=== PATIENT | female | born 1985 | race Caucasian/White ===

== ENCOUNTER 2019-05-30 19:55 | Emergency (ER) | payer SELFPAY ==
[2019-05-30 20:02] VITALS: BP 107/74; PULSE 88; RESP 16; TEMP 37.1; O2SAT 96; BMI 23.8
--- NOTE | 2019-05-30 20:04 | ECG_ITS ---
Measurements Intervals [place] Rate: 83 P: 52 KS: 125 QRS: 22 QRSD: 88 T: 36 QT: 380 QTc: 447 SINUS RHYTHM POSSIBLE RIGHT VENTRICULAR CONDUCTION DELAY [RSR (QR) IN V1/V2] Compared to ECG 01/05/2019 06:52:17 No significant changes Electronically Signed On 05-31-2019 16:17:13 PATTERNATOR by Klaus Isbell M.D. [email or web address]
--- NOTE | 2019-05-30 20:04 | XR_ITS ---
WS: [id number] CHEST 2 VIEWS HISTORY: Acute onset of chest pain. COMPARISON: 09/23/2007 Lungs: Interstitial thickening in the lower lung du. On the lateral projection there is a more fo amparo opacification at the costophrenic angles. Believe this is probably in the LEFT costophrenic angle . Additional long-term stability of a RIGHT lower lobe calcification. Cardiac size: Normal. Mediastinum/Aorta: Normal mediastinum. Bones: Incompletely visualized fusion hardware LEFT humerus. XR/XR chest 2V* [id number] IMPRESSION: 1. Subsegmental pneumonia costophrenic angle LEFT lower lobe. 2. Otherwise stable.
--- NOTE | 2019-05-30 20:24 | ED_ITS ---
Entered by Karolina Shelton, acting as scribe for Iona Castellanos MD HPI - Chest Pain General: Chief Complaint: Chest Pain Stated Complaint: CP Time Seen by Provider: 05/30/19 20:23 Source: patient Mode of arrival: ambulatory Limitations: no limitations History of Present Illness: HPI narrative: 34 yo f came to the er pov for chest pain. Onset was today. Pt states that she was having some sharp chest pain about an hour ago. Pt states that she has some meth use 2 days ago. Pt states that she has been walking a lot the last couple of days. MD complaint: chest pain Onset (ago): hour(s) (1 hour ago) Timing of current episode: episodic Prior episodes: No Onset: during exertion Pain location: other (center) Associated symptoms: Deny abdominal pain, dyspnea, fever(s), nausea or vomiting Review of Systems Const: Denies: fever, chills, body aches or change in appetite Eyes: Denies: blurry vision or eye discomfort ENMT: Denies: throat pain or dental pain Card: Denies: chest pain Resp: Denies: shortness of breath GI: Denies: abdominal pain, nausea, vomiting or diarrhea : Denies: painful urination Musc: Denies: neck pain or back pain Skin/Breast: Denies: rash Neuro: Denies: headache Psych: Denies: depression [place]/Lymph: Denies: easy bruising All/Imm: Denies: hives PFSH ED PFSH: Statuses (acute, chronic, etc) shown below reflect problem list status as previously entered and may not be historically accurate Social History Smoking and tobacco status: current every day smoker Physical Exam Const: COMMON NORMALS: no apparent distress, oriented x3 and healthy appearing HENMT: COMMON NORMALS: normocephalic and head/scalp atraumatic HEAD & SCALP: normocephalic and atraumatic Eye: COMMON NORMALS: PERRL and EOMs intact bilaterally PUPIL: Yes PERRL Neck/C-Spine: COMMON NORMALS: full ROM and supple Chest: COMMONS NORMALS: inspection of chest normal and palpation of chest normal Resp: COMMON NORMALS: normal respiratory effort, no retractions, no use of accessory muscles and clear to auscultation bilaterally AUSCULTATION: clear to auscultation bilaterally Cardio: COMMON NORMALS: regular rate, regular rhythm and no murmurs RATE: regular rate RHYTHM: regular rhythm GI: COMMON NORMALS: normal to inspection, nondistended, normoactive bowel sounds, soft to palpation, non-tender and no masses PALPATION: Yes soft Extremity: COMMON NORMALS: normal to inspection and full ROM Neuro: COMMON NORMALS: oriented x3, moves all extremities and no focal motor deficits Psych: COMMON NORMALS: mental status grossly normal, thought process normal and cooperative THOUGHT PROCESS: normal thought process Skin: COMMON NORMALS: no rashes or lesions noted and no wounds GENERAL SKIN EXAM: no rashes or lesions noted Course Vital Signs: Vital signs: Vital Signs Temperature 98.4 F 05/30/19 20:41 Pulse Rate 88 05/30/19 21:57 Respiratory Rate 16 05/30/19 21:57 Blood Pressure 111/66 05/30/19 21:57 Pulse Oximetry 94 05/30/19 21:57 MDM - Chest Pain MDM Narrative: Medical decision making narrative: Patient presents here with chest pain that is atypical in nature. She has no signs of cardiac cause or pulmonary embolism. Her EKG and x-ray here are normal. She has been pain-free here. She is stable for discharge and is to follow-up with her primary care doctor in 3 to 5 days return to the ER if worsening. Imaging Data^: CXR: Attestation: I personally reviewed and interpreted this imaging study as follows: My impression: no acute abnormality EKG Data^: EKG 1: Attestation: I personally reviewed and interpreted this EKG as follows: EKG interpretation date: 05/30/19 EKG interpretation time: 20:47 Interpretation: nsr hr [address] or t wave abnormalities qrs 88 qtc 419 Discharge Plan Discharge Patient Disposition: Home, Self-Care Clinical Impression: Atypical chest pain Condition: Stable Discharge Orders: Discharge Order (Routine); Ordered 05/30/19 Ordered By: Iona Castellanos Discharge Diet: Advance as tolerated Discharge Activity: Resume usual activity Patient Instructions: Chest Pain (ED) Discharge Date/Time: 05/30/19 21:58 Coding Level of Care Code ED Consumer Safety Inspector for Chg Fwd Exam Problem Focused The documentation recorded by the Nikita lala Stephanie Lyn, accurately re flects the service I personally performed and the decisions made by me, Iona Castellanos MD May 30, 2019 19:55
[2019-05-30 20:41] VITALS: BP 107/6; PULSE 85; RESP 16; TEMP 36.9; O2SAT 98
--- NOTE | 2019-05-30 20:55 | PC.NURSE ---
Introduced self to patient and initiated vital signs. Pt is A&O x 4 and agreeable. Pt states that the reason for the ER visit today is due to chest pain that she was experiencing earlier but has now resolved. EMS states nitro paste applied and symptoms resolved upon arrival. Reassured patient of needs and will continue to monitor.
[2019-05-30 21:57] VITALS: BP 111/66; PULSE 88; RESP 16; O2SAT 94
== END 2019-05-30 21:58 | disposition home or self-care (01) ==
PROVIDERS: Emergency Provider Emergency Medicine
DX: R07.89 Other chest pain (principal); F17.210 Nicotine dependence, cigarettes, uncomplicated
CPT/HCPCS: 71046; 93005; 99281; 99283

== ENCOUNTER 2020-12-31 09:29 | Emergency (ER) | payer SELFPAY ==
[2020-12-31] VITALS (7 sets, daily range): BP systolic 103–110; BP diastolic 67–75; PULSE 72–88; RESP 15–16; TEMP 36.4; O2SAT 98–100; BMI 23.8
--- NOTE | 2020-12-31 09:45 | ED_ITS ---
HPI - General Adult General: Chief complaint: Wound/Laceration Stated complaint: LACERATION R FOREARM Time Seen by Provider: 12/31/20 09:30 History of Present Illness: HPI narrative: 35-year-old female presents emergency room with complaint of laceration to her right forearm. States she punched a window and cut her forearm on the glass. A bulky pressure bandage in place on arrival. She is unsure of her last tetanus accident happened just prior to arrival. Location: right and upper extremity Severity: mild Quality: sharp Pain Consistency: constant Relieving factors: immobilization and rest Exacerbating factors: movement and other (Exam) Associated symptoms: Deny chest pain, confusion, cough, diaphoresis, decreased appetite, dyspnea, fevers/chills, headache(s), malaise, nausea, rash, palpitations, seizures, short of breath, syncope, vomiting or weakness Treatments prior to arrival: none Review of Systems Const: Denies: malaise or diaphoresis ENMT: Denies: throat pain, ear or mastoid pain, nasal discharge or nasal congestion Card: Denies: chest pain, palpitations or syncope Resp: Denies: dyspnea GI: Denies: nausea or vomiting : Denies: flank pain, difficulty voiding, dysuria, urinary frequency or urinary urgency Skin/Breast: Denies: rash Neuro: Denies: headache(s) or confusion PFSH ED PFSH: Social History Smoking and tobacco status: current every day smoker Physical Exam HENMT: COMMON NORMALS: normocephalic, atraumatic and hearing grossly normal bilaterally HEAD & SCALP: normocephalic and atraumatic Neck/C-Spine: COMMON NORMALS: no JVD Resp: COMMON NORMALS: normal respiratory effort, No retractions, No use of accessory muscles and clear to auscultation bilaterally AUSCULTATION: clear to auscultation bilaterally Cardio: COMMON NORMALS: no JVD, regular rate, regular rhythm and No murmurs present (Cardio) RATE: regular rate RHYTHM: regular rhythm GI: COMMON NORMALS: Soft to palpation and No hepatosplenomegaly present AUSCULTATION: Yes normoactive bowel sounds PALPATION: Yes Soft to palpation, No Tenderness to palpation present (GI), No Guarding due to palpation present (GI) and Yes No hepatosplenomegaly present Extremity: COMMON NORMALS: normal to inspection, capillary refill normal, no clubbing, cyanosis or edema, no calf tenderness and no pedal edema NARRATIVE EXTREMITY EXAM: 12 cm full-thickness laceration of the right forearm no tendon involvement patient able to flex and extend at the fingers without difficulty. Procedures Laceration Laceration 1: Site: upper extremity (Mid forearm volar surface ) Side (If applicable): right Description: irregular Depth: involves muscle layer Local Anesthetic: lidocaine 1% and with epi Amount of anesthesia used (mL): 15 Pre-repair: wound explored and irrigated extensively Skin layer closed with: nylon Size (cm): 3-0 Technique: simple, interrupted and running Subcutaneous layer closed with: chromic gut (Single gujeii-sa-fwbve suture to tie off a vein that was actively bleeding since in the subdermal area at the distal edge of the laceration) Size: 3-0 Procedural Sedation Indication: laceration repair Preparation: program proposals coordinator applied, pulse oximeter, supplemental O2 applied and suction/airway equipment at bedside Fentanyl: IV Fentanyl dose (mcg): 50 Midazolam dose (mg): 3 Patient Tolerated Procedure: well Complications: none Additional Comments: Patient tolerated well with no complications Course Vital Signs: Vital signs: Vital Signs Temperature 97.5 F L 12/31/20 09:33 Pulse Rate 72 12/31/20 11:20 Respiratory Rate 16 12/31/20 11:19 Blood Pressure 108/70 12/31/20 11:20 Pulse Oximetry 100 12/31/20 11:20 MDM - General Adult MDM Narrative: Medical decision making narrative: Patient is able to flex and extend against resistance without any difficulty and only minimal discomfort. She has normal sensation. This was tested pre and post laceration repair. On laceration repair after conscious sedation local anesthetic was applied good anesthesia the lateral edge of the wound was irregular and went through a tattoo the skin edges were approximated with care taken to try to realign the various aspects of the tattoo as best I could. That portion of the wound had several different angles this was approximated appropriately. The subcu tissue there is some laceration to the flexor muscles superficially. Did not appear to be through and through there is some fascia involved but no apparent tendons involved on exploration of the wound. Prior to closure the wound was copiously irrigated with a 20ml syringe and 18-gauge Angiocath. A single large vein was noted to be bleeding profusely during irrigation was clamped off with a curved hemostat and then tied off with a kyehkl-fr-foklk of 4-0 chromic. There is good hemostasis with this no further active bleeding. The remaining portion of the wound was a single long laceration this was closed with a running locking suture with care taken not to apply too much tension on the sutures and strangulate the skin. There is good approximation cosmesis and hemostasis. Wound care instructions given. Sutures out in 10 days. Turn if there is any sign of infection. Patient was prophylaxed with a gram of Ancef also her tetanus was updated. Discharge Plan Discharge Patient Disposition: Home Clinical Impression: Laceration Condition: Stable Prescriptions: New cephalexin 500 mg capsule 500 mg PO BID 7 Days Qty: 14 RF: 0 Discharge Orders: Discharge ED (Routine); Ordered 12/31/20 Ordered By: Alexx Gillis Discharge Diet: Usual diet Discharge Activity: Limit activity as instructed Patient Instructions: Opioid Safety Activity Restrictions/Additional Instructions: Mild use of the right arm for the next 3 days and advance as tolerated. Apply [id number] topical antibiotic ointment and a light dressing change at least once a day. Allow several hours a day exposure to air. Return to the walk-in clinic for suture removal in 10 days. If there is any sign of infection redness or drainage return immediately to the emergency room. Coding Level of Care Code ED Senior Software Qa Analyst for Josiah Waddell Exam Detailed
[2020-12-31] MEDS: ceFAZolin 1,000 mg SDV 1000 MG IVP (10:08)
[2020-12-31] MEDS: tetanus-dipt-pertussis 0.5 mL SDV IM (10:12)
[2020-12-31] MEDS: midazolam 1 mg/mL INJ 2 mL 2.5 MG IVP (11:18)
[2020-12-31] MEDS: midazolam 1 mg/mL INJ 2 mL 2 MG IVP (11:19)
[2020-12-31] MEDS: fentaNYL 50 mcg/mL INJ 2mL IVP (11:19)
== END 2020-12-31 13:19 | disposition home or self-care (01) ==
PROVIDERS: Emergency Provider Family Medicine
DX: S51.811A Laceration without foreign body of right forearm, initial encounter (principal); W25.XXXA Contact with sharp glass, initial encounter; F17.210 Nicotine dependence, cigarettes, uncomplicated; Z23 Encounter for immunization
CPT/HCPCS: 12004; 90471; 90715; 96374; 99284; 99291; J0690; J2250; J3010

== ENCOUNTER 2022-04-12 18:23 | Emergency (ER) | payer SELFPAY ==
[2022-04-12 18:51] VITALS: BP 123/84; PULSE 93; RESP 12; TEMP 36.7; O2SAT 98; BMI 22.7
== END 2022-04-12 21:01 | disposition left against medical advice (07) ==
PROVIDERS: Emergency Provider Family Medicine
DX: Z53.21 Procedure and treatment not carried out due to patient leaving prior to being seen by health care provider (principal)

== ENCOUNTER 2024-06-25 21:02 | Emergency (ER) | payer SELFPAY ==
[2024-06-25 21:04] VITALS: BMI 43.2
[2024-06-25 21:23] VITALS: PULSE 103; RESP 20; TEMP 36.6; O2SAT 97
--- NOTE | 2024-06-25 21:25 | PC.NURSE ---
Pt. was placed in restraint bed on arrival due to activity in police vehicle. After patient has had time to calm down, I have spoke with patient and she denies SI, HI or intent to do self harm . Pt. states that she was head butting the window in police due to fear of incarceration. Pt. is calm and kind in room with staff. Pt. has been released from any restraint and is sitting up in bed. Pt. has asked for female products because she is on her period. Pt. does states that she had two hits of meth tonight.
--- NOTE | 2024-06-25 21:33 | W.ED.PSYCHS ---
HPI - Psych General: Chief Complaint: Psychiatric Symptoms Stated Complaint: behavioral Time Seen by Provider: 06/25/24 21:09 History of Present Illness: 39-year-old female arrives via law enforcement. She was evidently picked up on the side of the road after 911 call. In the back of the squad car, she was slamming her head against the window. She was brought here because of this for evaluation. She is placed in restraints in the ambulance bay, due to combative behavior prior. She is not answering my questions on my interview. Related Data Allergies Allergy/AdvReac Type Severity Reaction Status Date / Time No Known Allergies Allergy Unverified 12/31/20 09:52 [facility] ED PFSH: Social History Smoking and tobacco/nicotine status: current every day tobacco/nicotine user Physical Exam Const: COMMON NORMALS: alert EXAM LIMITATIONS: behavioral limitations GENERAL APPEARANCE: well kempt and disheveled; not ill appearing and not frail appearing HENMT: COMMON NORMALS: normocephalic, atraumatic and Normal external nose present HEAD & SCALP: normocephalic and atraumatic FACE & SINUS: normal facial exam and face symmetric NOSE: Normal external nose present Eye: COMMON NORMALS: Equal, round and reactive pupils present and EOMs intact bilaterally PUPIL: Yes Equal, round and reactive pupils present Resp: COMMON NORMALS: normal respiratory effort, No use of accessory muscles and clear to auscultation bilaterally AUSCULTATION: clear to auscultation bilaterally Cardio: COMMON NORMALS: regular rate and regular rhythm RATE: regular rate RHYTHM: regular rhythm Neuro: SENSORIUM/ORIENTATION: Yes alert Psych: APPEARANCE: Yes well kempt Course Vital Signs: Vital signs: Vital Signs Temperature 97.8 F 06/25/24 21:23 Pulse Rate 103 H 06/25/24 21:23 Respiratory Rate 20 H 06/25/24 21:23 Blood Pressure 135/88 06/25/24 21:37 Pulse Oximetry 97 06/25/24 21:23 MDM - Psych Medical Decision Making Patient was cooperative with nursing staff. She is now out of restraints. She maintains she has no homicidal or suicidal ideation. She is awake and alert. She is oriented. She wishes to leave. Medically, she is stable. She has been cooperative after her initial arrival, and coming out of her restraints. She will be allowed discharge. She says that she has a safe place to go with someone sober. Lab Data 06/25/24 21:37 06/25/24 21:37 Laboratory Results WBC 8.44 10^3/uL (3.29-11.43) 06/25/24 21:37 RBC 4.20 10^6/uL (3.85-5.65) 06/25/24 21: Hgb 12.00 g/dL (11.27-16.99) 06/25/24 21: Hct 39.1 % (36-47) 06/25/24 21: MCV 93.1 fl (85-98) 06/25/24 21: MCH 28.6 pg (27-33) 06/25/24 21: MCHC 30.7 g/dL (30-55) 06/25/24 21: RDW 14.3 % (12.1-15.1) 06/25/24 21: Plt Count 338 10^3/cmm (157-399) 06/25/24 21: MPV 10.3 fL (7.4-10.4) 06/25/24 21: Neut % (Auto) 65.8 % 06/25/24 21: Lymph % (Auto) 26.9 % 06/25/24 21:37 [place] % (Auto) 4.6 % 06/25/24 21: Eos % (Auto) 1.5 % 06/25/24: Baso % (Auto) 1.1 % 06/25/24: Neut # (Auto) 5.55 10^3/uL (1.8-7.7) 06/25/24 21: Lymph # (Auto) 2.3 10^3/uL (0.8-4.8) 06/25/24 21: [place] # (Auto) 0.4 10^3/uL (0.2-0.9) 06/25/24 21:37 Eos # (Auto) 0.1 10^3/uL (0.0-0.8) 06/25/24 21: Baso # (Auto) 0.1 10^3/uL (0.0-0.1) 06/25/24 21:37 Nucleated RBC % (auto) 0 % 06/25/24 21:37 Nucleated RBCs # 0.0 /100WBC 06/25/24 21:37 Sodium 140 mmol/L (136-145) 06/25/24 21:37 Potassium 3.3 mmol/L (3.5-5.1) L 06/25/24 21:37 Chloride 103 mmol/L (98-107) 06/25/24 21:37 Carbon Dioxide 27 mmol/L (22-29) 06/25/24 21:37 Anion Gap 13.3 (5-19) 06/25/24 21:37 BUN 11 mg/dL (6-20) 06/25/24 21:37 Creatinine 0.7 mg/dL (0.5-0.9) 06/25/24 21:37 GFR Calculation 93.2 mL/min (90-130) 06/25/24 21:37 Glucose 106 mg/dL (65-115) 06/25/24 21:37 Calculated Osmolality 290 mOsm/kg (285-295) 06/25/24 21:37 Calcium 9.1 mg/dL (8.5-10.5) 06/25/24 21:37 Total Bilirubin 0.2 mg/dL (0.15-1.2) 06/25/24 21:37 AST 20 U/L (0-32) 06/25/24 21:37 ALT 16 U/L (0-33) 06/25/24 21:37 Alkaline Phosphatase 86 U/L (35-105) 06/25/24 21:37 Total Protein 7.7 g/dL (6.6-8.7) 06/25/24 21:37 Albumin 4.4 g/dL (3.5-5.2) 06/25/24 21:37 Globulin 3.3 g/dL (1.3-4.6) 06/25/24 21:37 TSH 3.85 uIU/mL (0.27-4.20) 06/25/24 21:37 HCG, Qual Negative (Negative) 06/25/24:22 Urine Color Yellow (Yellow) 06/25/24 21:22 Urine Appearance Clear (CLEAR) 06/25/24 21:22 Urine pH 7.5 (5-7) 06/25/24: Ur Specific [place] 1.001 (1.005-1.030) L 06/25/24: Urine Protein 1+ (Negative) A 06/25/24: Urine Glucose (UA) Negative (Normal) 06/25/24 21: Urine Ketones Negative (Negative) 06/25/24 21: Urine Blood 3+ (Negative) A 06/25/24: Urine Nitrate Negative (Negative) 06/25/24: Urine Bilirubin Negative (Negative) 06/25/24 21: Urine Urobilinogen 0.2 mg/dL (Negative) 06/25/24 21: Ur Leukocyte Esterase Trace (Negative) A 06/25/24: Urine RBC Too numerous to cnt /hpf (0-2) H 06/25/24: Urine WBC 0-4 /hpf (0-5) H 06/25/24: Ur Squamous Epith Cells 0-4 /hpf (0-5) H 06/25/24: Amorphous Sediment Not Reportable 06/25/24: Urine Bacteria Trace /hpf (NONE) 06/25/24: Salicylates 0.7 mg/dL (3-10) L 06/25/24 21:37 Urine Opiates Screen Negative ng/mL (Negative) 06/25/24: Acetaminophen < 5.0 ug/mL (10-30) L 06/25/24 21:37 Ur Barbiturates Screen Negative ng/mL (Negative) 06/25/24: Ur Phencyclidine Scrn Negative ng/mL (Negative) 06/25/24: Ur Amphetamines Screen Negative ng/mL (Negative) 06/25/24 21: U Benzodiazepines Scrn Negative ng/mL (Negative) 06/25/24 21: Urine Cocaine Screen Negative ng/mL (Negative) 06/25/24: U Marijuana (THC) Screen Negative ng/mL (Negative) 06/25/24: Ethyl Alcohol < 10 mg/dL (0-10) 06/25/24 21:37 Influenza A (PCR) Negative (Negative) 06/25/24: Influenza Type B (PCR) Negative (Negative) 06/25/24: RSV (PCR) Negative (Negative) 06/25/24 21:26 SARS-CoV-2 (PCR) Negative (Negative) 06/25/24 21:26 No radiology studies performed this visit Discharge Plan Discharge Patient Disposition: Home Clinical Impression: Drug-induced psychotic disorder Condition: Stable Discharge Orders: Discharge ED (Routine); Ordered 06/25/24 Ordered By: Shayne Medina Patient Instructions: Methamphetamine Use Disorder (ED), Opioid Safety, Pain Management Activity Restrictions/Additional Instructions: Return for thoughts or feelings of hurting yourself or others. Print Language: Nepalese Coding Level of Care Code ED Hog Worker for Josiah Waddell
--- NOTE | 2024-06-25 21:36 | ECG_ITS ---
[employer]Bookit Test Date: 2024-06-25 Pat Name: Raine Childs Department: Room: Gender: Female Retort Engineer: : 1985 Requested By: Shayne Simmons Order Number: [id number] Carla MD: NAVDEEP WOLF Measurements Intervals [place] Rate: 103 P: 67 NM: 121 QRS: 31 QRSD: 83 T: 51 QT: 340 QTc: 447 Interpretive Statements SINUS TACHYCARDIA POSSIBLE ANTERIOR MYOCARDIAL INFARCTION , PROBABLY OLD [30 ms Q WAVE IN V3/V4, OR R < 0.2 mV IN V4] ABNORMAL RHYTHM ECG Compared to ECG 05/30/2019 20:47:23 Myocardial infarct finding now present Sinus rhythm no longer present Electronically Signed On 06-28-2024 23:39:07 PLASMA PROCESSING TECHNICIAN by NAVDEEP WOLF [email or web address]
[2024-06-25 21:37] VITALS: BP 135/88
[2024-06-25 21:48] LABS: Basophils # 0.1 10^3/uL (0.0-0.1); Basophils % 1.1 %; Eosinophils # 0.1 10^3/uL (0.0-0.8); Eosinophils % 1.5 %; Hematocrit 39.1 % (36-47); Lymphocytes # 2.3 10^3/uL (0.8-4.8); Lymphocytes % 26.9 %; Mean Corpuscular HGB Conc 30.7 g/dL (30-55); Mean Corpuscular Hemoglobin 28.6 pg (27-33); Mean Corpuscular Volume 93.1 fl (85-98); Mean Platelet Volume 10.3 fL (7.4-10.4); Monocytes # 0.4 10^3/uL (0.2-0.9); Monocytes % 4.6 %; Neutrophils # 5.55 10^3/uL (1.8-7.7); Neutrophils % 65.8 %; Nucleated Red Blood Cells % 0 %; Platelet Count 338 10^3/cmm (157-399); Red Cell Distribution Width 14.3 % (12.1-15.1); White Blood Count 8.44 10^3/uL (3.29-11.43)
[2024-06-25 21:51] LABS: Bilirubin Urine Negative (Negative); Blood Urine 3+ (Negative); Glucose Urine UA Negative (Normal); Ketones Urine Negative (Negative); Leukocyte Esterase Urine Trace (Negative); Nitrate Urine Negative (Negative); Protein Urine 1+ (Negative); Specific Gravity, Urine 1.001 (1.005-1.030); Urine Appearance Clear (CLEAR); Urine Color Yellow (Yellow); Urobilinogen Urine 0.2 mg/dL (Negative); pH Urine 7.5 (5-7)
[2024-06-25 21:58] LABS: Amphetamines Screen Urine Negative (Negative); Barbiturates Screen Urine Negative (Negative); Benzodiazepines Screen Urine Negative (Negative); Cocaine Screen Urine Negative (Negative); HCG Qualitative Urine. Negative (Negative); Opiate Screen Urine Negative (Negative); PCP Screen Urine Negative (Negative); THC Screen Urine Negative (Negative)
[2024-06-25 22:09] LABS: Influenza A NEGATIVE (Negative); Influenza B NEGATIVE (Negative); Respiratory Syncytial Virus Ce NEGATIVE (Negative); SARS-CoV-2 PCR NEGATIVE (Negative)
[2024-06-25 22:22] LABS: Alanine Aminotransferase 16 U/L (0-33); Albumin Level 4.4 g/dL (3.5-5.2); Alkaline Phosphatase 86 U/L (35-105); Anion Gap 13.3 (5-19); Aspartate Amino Transferase 20 U/L (0-32); Blood Urea Nitrogen 11 mg/dL (6-20); Calcium 9.1 mg/dL (8.5-10.5); Carbon Dioxide 27 mmol/L (22-29); Chloride 103 mmol/L (98-107); Creatinine Clr Calc Pharmacy 154.5266; Globulin 3.3 g/dL (1.3-4.6); Glomerular Filtration Rate 93.2 mL/min (90-130); Glucose 106 mg/dL (65-115); Osmolality Calculated 290 mOsm/kg (285-295); Potassium 3.3 mmol/L (3.5-5.1); Salicylate 0.7 mg/dL (3-10); Sodium 140 mmol/L (136-145); Thyroid Stimulating Hormone 3.85 uIU/mL (0.27-4.20); Total Bilirubin 0.2 mg/dL (0.15-1.2); Total Protein 7.7 g/dL (6.6-8.7)
[2024-06-25 22:23] LABS: Acetaminophen < 5.0 ug/mL (10-30); Alcohol Level < 10 mg/dL (0-10)
[2024-06-25 22:30] LABS: Add Urine Culture? Yes; Add Urine Microscopic? YES; Bacteria Urine TRACE /hpf; RBC Urine TOO NUMEROUS TO CNT /hpf (0-2); Squamous Epithelial Cell Urine 0-4 /hpf (0-5); WBC Urine 0-4 /hpf (0-5)
== END 2024-06-25 23:22 | disposition home or self-care (01) ==
PROVIDERS: Emergency Provider Emergency Medicine
DX: F19.150 Other psychoactive substance abuse with psychoactive substance-induced psychotic disorder with delusions (principal)
CPT/HCPCS: 36415; 80053; 80306; 80307; 81001; 81025; 84443; 85025; 87086; 87637; 93005; 99284

== ENCOUNTER 2025-03-13 00:37 | Emergency (ER) | payer MEDICAID, SELFPAY ==
[2025-03-13 00:42] VITALS: BP 116/93; PULSE 94; RESP 16; TEMP 36.9; O2SAT 98; BMI 25.9
[2025-03-13] MEDS: tetracaine 0.5% Op Soln 4 mL Btl 1 DROP EYE-LEFT (01:08)
[2025-03-13 01:32] VITALS: BP 117/84; O2SAT 95
--- NOTE | 2025-03-13 01:40 | ED_ITS ---
HPI - Eye Problem General: Chief complaint: Eye Problems Stated complaint: LT eye pain Time Seen by Provider: 03/13/25 01:00 History of Present Illness: Patient is a 40yo female presents with a two-week history of left eye pain that has been progressively worsening. She describes the pain as a pressure sensation, occasionally radiating to the side of the eye. Today, she experienced excruciating pain that caused her to cry, prompting the visit. The patient denies any changes in vision, eye drainage, or matting of the eye upon waking. She also denies any trauma or injury to the eye. The patient reports feeling like there is a cut underneath her eyelid. The pain is primarily located in the upper periorbital region. No prior treatments have been attempted. Related Data Previous Rx's ?Medication ?Instructions ?Recorded ketorolac 0.5 % eye drops 1 drp ophthalmic (eye) Q8H # 5 mL 03/13/25 Allergies Allergy/AdvReac Type Severity Reaction Status Date / Time No Known Allergies Allergy Unverified 12/31/20 09:52 PFSH ED PFSH: Social History Smoking and tobacco/nicotine status: current every day tobacco/nicotine user Physical Exam HENMT: COMMON NORMALS: normocephalic, atraumatic and Normal external nose present HEAD & SCALP: normocephalic and atraumatic FACE & SINUS: normal facial exam and face symmetric NOSE: Normal external nose present and Normal nares present Eye: COMMON NORMALS: Equal, round and reactive pupils present, EOMs intact bilaterally, conjunctivae normal and no papilledema GENERAL EYE: appearance normal, both eyes and all related structures and normal light reflex VISUAL ACUITY: Yes acuity normal ALIGNMENT: Yes alignment normal EYELID: eyelids normal CONJUNCTIVA: Yes conjunctivae normal SCLERA: sclerae normal CORNEA: Yes corneas normal PUPIL: Yes Equal, round and reactive pupils present DIRECT OPHTHALMOSCOPY: Yes normal light reflex, Yes no papilledema, Yes photophobia, No optic disc abnormality and No retinal abnormality Neck/C-Spine: GENERAL: Yes trachea midline Chest: CHEST: Yes Symmetrical chest wall rise Resp: COMMON NORMALS: normal respiratory effort and No retractions Cardio: COMMON NORMALS: regular rate and regular rhythm RATE: regular rate RHYTHM: regular rhythm Skin: NARRATIVE SKIN EXAM: No facial rash Course Vital Signs: Vital signs: Vital Signs Temperature 98.4 F 03/13/25 00:42 Pulse Rate 94 03/13/25 00:42 Respiratory Rate 18 03/13/25 01:41 Blood Pressure 117/84 03/13/25 01:32 Pulse Oximetry 98 03/13/25 01:41 MDM - Eye Problem Medical Decision Making Intraocular pressures tested. It is 19 in the left eye. Tetracaine is used. This did not seem to improve her pain. She is not photosensitive. There is no redness. Fluorescein did not reveal corneal abrasion. No pain with extraocular movements. Funduscopic exam did not reveal a cause. She will be discharged with Toradol eyedrops. Ophthalmology follow-up. Stable. Return for worsening symptoms. No radiology studies performed this visit Discharge Plan Discharge Patient Disposition: Home Clinical Impression: Acute left eye pain Condition: Stable Prescriptions: New ketorolac 0.5 % drops 1 drp ophthalmic (eye) Q8H Qty: 5 0RF Rx Instructions: begin 24 hours prior to surgery Discharge Orders: Discharge ED (Routine); Ordered 03/13/25 Ordered By: Shayne Medina Referrals: Gregory Santizo DO [Provisional Staff, Opthalmology] - 1-3 days Patient Instructions: Eye Pain (ED), Opioid Safety, Pain Management, Patient Portal & Joseph Instructions Activity Restrictions/Additional Instructions: Use drops as instructed. You can get these at your pharmacy. They will help with pain. Call later this morning after 8 AM at the number above to the ophthalmology clinic. Tell them you were here with eye pain this morning. They will schedule an appointment for you. Return for vision changes, worsening redness or drainage, any other concerning symptoms. Print Language: Lithuanian Coding Level of Care Code ED Earthmoving Labourer for Josiah Waddell
[2025-03-13 01:41] VITALS: RESP 18; O2SAT 98
[2025-03-13] MEDS: oxyCODONE-APAP 5-325 mg Tablet 1 TAB PO (01:41)
== END 2025-03-13 01:45 | disposition home or self-care (01) ==
PROVIDERS: Emergency Provider Emergency Medicine
DX: H57.12 Ocular pain, left eye (principal); Z72.0 Tobacco use
CPT/HCPCS: 96372; 99284; J1885; J9999